=== PATIENT | male | born 1995 | race Asian ===

== ENCOUNTER 2021-04-06 10:52 | Outpatient (CLI) | payer OTHER, SELFPAY ==
--- NOTE | ~2021-04-06 | XR_ITS ---
XR ribs LT 2V w CXR 2V DATE: 04/06/2021 11:10 INDICATION: Intermittent left rib and sternal costochondral junction pain for 2 weeks. No injury. TECHNIQUE: PA and lateral chest. 3 views of the left ribs. COMPARISON: None FINDINGS: Normal heart size. No hilar or mediastinal enlargement. No pulmonary infiltrate or consolid ation, pleural effusion or pulmonary vascular congestion or pneumothorax. Sternoclavicular joints appear symmetric and normal. No rib fracture or bone destruction is detected. IMPRESSION: Negative examination Reviewed, dictated and finalized at location A. TER OPERATOR IMPRESSION: Negative examination
== END 2021-04-06 10:53 | disposition home or self-care (01) ==
LOC: ANHIMG 10:59
PROVIDERS: PCP Physician Assistant; Visit Provider Physician Assistant
DX: R07.89 Other chest pain (principal)
CPT/HCPCS: 71046; 71100

== ENCOUNTER 2022-05-11 08:03 | Outpatient (CLI) | payer OTHER, SELFPAY ==
--- NOTE | 2022-06-02 21:14 | WPDHOMESLEEP ---
Sleep Study - Home Unattended Date of Study: 05/11/22 Ordering Provider: Henry Hermosillo PA-C Interpreting Provider: Amanda Kennedy, DO Home Sleep Study Type: Watch PAT Height: 1.63 m Weight: 87.997 kg Body Mass Index: 33.3 Neck Circumference (inches): 16 [place]: 13 Reason for Sleep Study Snoring, witnessed apneas Sleep History The patient is a 26-year-old male with hyperlipidemia and B12 deficiency that had a sleep study ordered by his primary care for evaluation of sleep apnea. The patient rarely awakens from sleep short of breath. He rarely awakens at night with heartburn, belching or cough. He constantly snores loudly enough that others complain. He occasionally has trouble sleeping when he has a cold. He rarely wakes up gasping for air throughout the night. He frequently has breathing problems at night observed by himself or others. He denies sweating excessively at night. He rarely has heart palpitations or irregular heartbeats during the night. He occasionally falls asleep during the day and occasionally falls asleep while driving. He denies sleep paralysis and cataplexy. He rarely has trouble at school or work due to sleepiness. He rarely experiences vivid dreamlike scenes upon awakening or falling asleep. He denies feeling afraid of going to sleep. He rarely has nightmares. He denies remembering his dreams. He occasionally has thoughts racing through his mind. He rarely feels sad, depressed or anxious. He occasionally has muscular tension. He rarely notices parts of his body jerk. He rarely kicks during the night. He denies having crawling and aching feelings in his legs as well as leg pain during the night. He denies grinding his teeth during sleep. He rarely awakens with morning jaw pain. He denies being bothered by pain during the day and denies being awakened by pain during the night. He rarely wakes up feeling stiff in the morning. He rarely wakes up with sore or achy muscles. He rarely wakes up with pain minute in the neck, spine or other joints. The patient goes to bed at 10:30 p.m. on weekdays and 11:00 p.m. on the weekends. It takes him 5-10 minutes to fall asleep. He wakes up 2-3 times throughout the night to urinate. He is able to fall back asleep within 10 minutes. He wakes up at 6:30 a.m. on weekdays and at 9:00 a.m. on the weekends. He typically gets 8 hours of sleep per night. He will stay in bed for 20 minutes after waking up in the morning. he currently lives with a friend. He does not consume any caffeinated beverages within 2 hours of bedtime. He does not engage in physical exercise before bedtime. He will watch television before falling asleep. He will take naps in the afternoon or the evening and they are refreshing. He drinks 1-2 cups of caffeinated beverage per day. He will drink 1-2 alcoholic beverages per weekend. He denies tobacco and recreational drug use. [facility] Family History Family History Grandparent Diabetes mellitus Hypertension Social History Social History Smoking status: Never smoker Second hand tobacco smoke exposure: No Alcohol intake: current Substance use: unknown Lack of Transportation: No Lack of Food: Never True Current Housing: I Have Housing Concerned About Future Housing: No Difficulty Paying Gas/Electric Bills: No Difficulty Paying for Meds: No Currently Unemployed: No Education: Master's Degree or Higher Difficulty w/ Childcare or Family Care: No Medications Home Medications Medication Instructions Recorded Confirmed Type mecobalamin (vitamin B12) 1,000 1,000 mcg PO DAILY 04/19/22 04/20/22 History mcg lozenges omega 2-[id number]-ove-fish oil 60 mg-90 1 cap PO DAILY 04/19/22 04/20/22 History mg-500 mg capsule (Fish Oil) rosuvastatin 5 mg tablet 5 mg PO DAILY #90 tabs 04/26/22 Rx Sleep
[2022-06-02 21:23] VITALS: BMI 33.3
--- NOTE | 2022-08-03 12:54 | SLEEP ---
New calls [id number]
== END 2022-05-14 10:23 | disposition home or self-care (01) ==
LOC: ANHCSM 08:04
PROVIDERS: PCP Physician Assistant; Visit Provider Physician Assistant
DX: G47.10 Hypersomnia, unspecified (principal); G47.33 Obstructive sleep apnea (adult) (pediatric)
CPT/HCPCS: 95800

== ENCOUNTER 2022-07-10 08:16 | Outpatient (CLI) | payer OTHER, SELFPAY ==
--- NOTE | 2022-08-07 20:18 | WPDSLEEPSTUD ---
Sleep Study Date of Study: 07/10/22 Ordering Provider: Henry Hermosillo PA-C Interpreting Physician: Judy Marie MD Sleep Study Type: CPAP Titration Height: 1.63 m Weight: 86.636 kg Body Mass Index: 32.8 Neck Circumference (inches): 17 [place]: 13 Reason for Sleep Study Hypersomnolence, obstructive sleep apnea * 05/11/2022 Home sleep test with WatchPat showing severe obstructive sleep apnea, apnea-hypopnea index is 55.5 with desaturation is 73%. The patient presents now for a titration. Sleep History Jus Mendez is a 27-year-old man with hyperlipidemia and B12 deficiency. On May 11, 2022 he had a home sleep test showing severe obstructive sleep apnea with an AHI 55.5 and desaturation to 73%. The patient rarely awakens from sleep short of breath.? He rarely awakens at night with heartburn, belching or cough.? He constantly snores loudly enough that others complain.? He occasionally has trouble sleeping when he has a cold.? He rarely wakes up gasping for air throughout the night.? He frequently has breathing problems at night observed by himself or others.? He denies sweating excessively at night.? He rarely has heart palpitations or irregular heartbeats during the night.? He occasionally falls asleep during the day and occasionally falls asleep while driving.? He denies sleep paralysis and cataplexy.? He rarely has trouble at school or work due to sleepiness.? He rarely experiences vivid dreamlike scenes upon awakening or falling asleep.? He denies feeling afraid of going to sleep.? He rarely has nightmares.? He denies remembering his dreams.? He occasionally has thoughts racing through his mind.? He rarely feels sad, depressed or anxious.? He occasionally has muscular tension.? He rarely notices parts of his body jerk.? He rarely kicks during the night.? He denies having crawling and aching feelings in his legs as well as leg pain during the night.? He denies grinding his teeth during sleep.? He rarely awakens with morning jaw pain.? He denies being bothered by pain during the day and denies being awakened by pain during the night.? He rarely wakes up feeling stiff in the morning.? He rarely wakes up with sore or achy muscles.? He rarely wakes up with pain minute in the neck, spine or other joints.? The patient goes to bed at 10:30 p.m. on weekdays and 11:00 p.m. on the weekends.? It takes him 5-10 minutes to fall asleep.? He wakes up 2-3 times throughout the night to urinate.? He is able to fall back asleep within 10 minutes.? He wakes up at 6:30 a.m. on weekdays and at 9:00 a.m. on the weekends.? He typically gets 8 hours of sleep per night.? He will stay in bed for 20 minutes after waking up in the morning. he currently lives with a friend.? He does not consume any caffeinated beverages within 2 hours of bedtime.? He does not engage in physical exercise before bedtime.? He will watch television before falling asleep.? He will take naps in the afternoon or the evening and they are refreshing.? He drinks 1-2 cups of caffeinated beverage per day.? He will drink 1-2 alcoholic beverages per weekend.? He denies tobacco and recreational drug use. [facility] Past Medical History Medical History (Updated 08/07/22 @ 20:22 by Judy Marie MD) B12 deficiency Hyperlipidemia JACINTA (obstructive sleep apnea) Family History Family History Grandparent Diabetes mellitus Hypertension Social History Social History Smoking status: Never smoker Second hand tobacco smoke exposure: No Alcohol intake: current Substance use: unknown Lack of Transportation: No Lack of Food: Never True Current Housing: I Have Housing Concerned About Future Housing: No Difficulty Paying Gas/Electric Bills: No Difficulty Paying for Meds: No Currently Unemployed: No Education: Master's Degree or Higher Difficulty w/ Childcare or Family Care: N
[2022-08-07 20:33] VITALS: BMI 32.8
== END 2022-07-11 06:13 | disposition home or self-care (01) ==
LOC: ANHCSM 08:17
PROVIDERS: PCP Physician Assistant; Visit Provider Physician Assistant
DX: G47.33 Obstructive sleep apnea (adult) (pediatric) (principal)
CPT/HCPCS: 95811